=== PATIENT | female | born 1955 | race Caucasian/White ===

== ENCOUNTER 2016-07-27 16:22 | Emergency (ER) | payer SELFPAY ==
--- NOTE | 2016-07-27 17:01 | ER Document Report ---
ED Medical Screen (RME) - General Stated Complaint: RASH Time seen by provider: 16:57 Mode of Arrival: Ambulatory Information source: Patient Notes: 61-year-old female presents to ED for generalized rash since a week ago . She states she was working in the yard and developed a rash that is now spread over her body to include her "private area ." No acute distress noted difficulty swallowing no difficulty breathing talking in full since this. I have greeted and performed a rapid initial assessment of this patient. A comprehensive ED assessment and evaluation of the patient, analysis of test results and completion of medical decision making process will be conducted by an additional ED providers. TRAVEL OUTSIDE OF THE [place] IN LAST 30 DAYS: No - Related Data Allergies/Adverse Reactions: No Known Allergies Allergy (Unverified 02/10/16 09:01) Past Medical History Musculoskeltal Medical History: Reports Hx Arthritis, Reports Hx Muscle Spasm Physical Exam - Vital signs Vitals: Temp Pulse Resp BP Pulse Ox 98.0 F 80 16 127/57 H 100 07/27/16 16:28 07/27/16 16:28 07/27/16 16:28 07/27/16 16:28 07/27/16 16:28 Course - Vital Signs Vital signs: Temp Pulse Resp BP Pulse Ox 98.0 F 80 16 127/57 H 100 07/27/16 16:28 07/27/16 16:28 07/27/16 16:28 07/27/16 16:28 07/27/16 16:28
--- NOTE | 2016-07-27 20:03 | ER Document Report ---
ED Skin Rash/Insect Bite/Abscs - General Chief Complaint: Rash Stated Complaint: RASH Time seen by provider: 19:55 Mode of Arrival: Ambulatory Information source: Patient Notes: This is a 61-year-old female who presents to the emergency room with rash, redness and swelling. Patient states that she was out trimming trees last week. Approximately 3 days after, she started developing the rash. The rash first started on the inner aspect of the right forearm and arm. She states that she's had little lesions, inner groin area and on her trunk. TRAVEL OUTSIDE OF THE [place] IN LAST 30 DAYS: No - HPI Patient complains to provider of: Skin rash/lesion Onset: Last week Onset/Duration: Gradual Quality of pain: Dull Severity: Moderate Pain Level: 2 Skin Character: Lesion, Linear, Swelling Quality of rash: Itchy Identify cause: Yes - your debris Exacerbated by: Denies Relieved by: Denies Similar symptoms previously: No Recently seen / treated by doctor: No - Related Data Allergies/Adverse Reactions: No Known Allergies Allergy (Verified 07/27/16 17:02) Past Medical History - General Information source: Patient - Social History Smoking Status: Former Smoker Cigarette use (# per day): No Chew tobacco use (# tins/day): No Frequency of alcohol use: None Drug Abuse: None Lives with: Family Family History: Reviewed & Not Pertinent Patient has suicidal ideation: No Patient has homicidal ideation: No - Medical History Medical History: Negative Renal/ Medical History: Denies: Hx Peritoneal Dialysis Musculoskeltal Medical History: Reports Hx Arthritis, Reports Hx Muscle Spasm Surgical Hx: Negative Review of Systems - Review of Systems Constitutional: denies: Chills, Fever EENT: No symptoms reported Cardiovascular: No symptoms reported Respiratory: No symptoms reported Gastrointestinal: No symptoms reported Genitourinary: No symptoms reported Female Genitourinary: No symptoms reported Musculoskeletal: See HPI Skin: See HPI Hematologic/Lymphatic: No symptoms reported Neurological/Psychological: No symptoms reported Physical Exam - Vital signs Vitals: Temp Pulse Resp BP Pulse Ox 98.0 F 80 16 127/57 H 100 07/27/16 16:28 07/27/16 16:28 07/27/16 16:28 07/27/16 16:28 07/27/16 16:28 Notes: Physical exam: GENERAL: 61-year-old female, alert and oriented 3, no acute distress HEAD: Atraumatic, normocephalic. EYES: Pupils equal round and reactive to light, extraocular movements intact, sclera anicteric, conjunctiva are normal. ENT: Moist mucous membranes. NECK: Normal range of motion, supple LUNGS: Breath sounds clear to auscultation bilaterally and equal. No wheezes rales or rhonchi. HEART: Regular rate and rhythm without murmurs, rubs or gallops. EXTREMITIES: She has an erythematous rash on the inner aspect of the right forearm. There is aspects of the rash that are linear and weeping. She does have other lesions on the trunk. Normal range of motion, no pitting or edema. No clubbing or cyanosis. There is erythema. NEUROLOGICAL: Cranial nerves II through XII grossly intact. Normal speech, normal gait. PSYCH: Normal mood, normal affect. SKIN: As mentioned above under extremities. Course - Re-evaluation Re-evalutation: 07/27/16 20:13 Note: The patient has a fair amount of erythema along with linear lesions on the right upper extremity. I don't think this superimposed infection, but she has poor follow-up (i.e. no physician) and I'm putting her on a steroid for the toxodendron dermatitis. Therefore, I will cover her with some Keflex as well. She'll get some Percocet for pain. She will continue calamine and/or Benadryl. I've advised her to use oatmeal baths as well. I will give her the number for the [facility]. - Vital Signs Vital signs: Temp Pulse Resp BP Pulse Ox 98.0 F 80 16 127/57 H 100 07/27/16 16:28 07/27/16 16:28 07/27/16 16:28 07/27/16 16:28 07/27/16 16:28 Discharge - Discharge Clinical Impression: Toxicodendron dermatitis Condition: Stable Disposition: HOME, SELF-CARE Instructions: Duy Lisa ([facility]) Additional Instructions: Recommendations: The prednisone taper is as follows: Take 6 tablets (60 mg total) for 3 days. Then take 5 tablets (50 mg total) for 3 days. Then take 4 tablets (40 mg total) for 3 days. Then take 3 tablets (30 mg total) for 3 days. Then take 2 tablets (20 mg total) for 2 days. Then take one tablet (10 mg total) for one day. Then stop As far as the antibiotic, take Keflex as prescribed. Take Percocet for pain: See the narcotic instruction sheet. Do not take ibuprofen while on the prednisone (the 2 earlier take your stomach). Return to the emergency room for worsening pain, worsening redness, fever ( temperature greater than 100.4) or concerns are getting worse. You can continue the calamine lotion, and/or Benadryl. Oatmeal baths will also help. Follow-up with a primary care doctor: I left the number for the [facility] which is a free clinic affiliated with the [facility]. The pain medicine you're taking prescribed as a narcotic. There are several important things you should know about this medicine: 1. This medicine contains Tylenol: It is important that you do not take Tylenol (or acetaminophen) while on this medicine. Tylenol is metabolized by the liver and taking too much Tylenol (acetaminophen) can lay to liver damage and even liver failure. 2. Taking narcotics for too long can lead to physical and mental dependence. Take this medicine only if really needed and in the lowest quantity to achieve pain relief. 3. Do not drink alcohol while on this medicine. Alcohol interacts with narcotics and the combination can be dangerous. 4. Do not drive or operate machinery while on this medicine. 5. Narcotics do cause constipation, so drink plenty of fluids and daily stool softeners. Prescriptions: Cephalexin Monohydrate [Keflex 500 mg Capsule] 500 mg PO QID #20 capsule Oxycodone HCl/Acetaminophen [Percocet 5-325 mg Tablet] 1 - 2 tab PO ASDIR PRN # 25 tablet PRN Reason: Prednisone 10 mg PO DAILY #21 tablet Referrals: [facility] [Provider Group] - Follow up as needed
[2016-07-27 20:24] VITALS: BP 127/60
== END 2016-07-27 20:23 | disposition home or self-care (01) ==
LOC: ER 16:22
DX: L23.7 Allergic contact dermatitis due to plants, except food (principal); Z87.891 Personal history of nicotine dependence
CPT/HCPCS: 99282

== ENCOUNTER → 2018-09-19 | Outpatient (CLI) | payer OTHER ==
[2018-09-19 15:45] LABS: ABSOLUTE LYMPHOCYTES (AUTO) 2.1 10^3/uL (0.5-4.7); ABSOLUTE MONOCYTES (AUTO) 0.3 10^3/uL (0.1-1.4); ABSOLUTE NEUT (AUTO) 2.1 10^3/uL (1.7-8.2); BASOPHILS % (AUTO) 0.5 % (0-2); EOSINOPHILS % (AUTO) 1.1 % (0-6); HEMATOCRIT 35.3 % (36.0-47.0); HEMOGLOBIN 11.8 g/dL (12.0-15.5); LYMPHOCYTES % (AUTO) 45.4 % (13-45); MEAN CORPUSCULAR HEMOGLOBIN 29.8 pg (27.0-33.4); MEAN CORPUSCULAR HGB CONC 33.5 g/dL (32.0-36.0); MEAN CORPUSCULAR VOLUME 89 fl (80-97); MONOCYTES % (AUTO) 7.2 % (3-13); PLATELET COUNT 245 10^3/uL (150-450); RED BLOOD COUNT 3.97 10^6/uL (3.72-5.28); RED CELL DISTRIBUTION WIDTH 14.6 % (11.5-14.0); SEGMENTED NEUTROPHILS % (AUTO) 45.8 % (42-78); TOTAL CELLS COUNTED % (AUTO) 100 %; WHITE BLOOD COUNT 4.5 10^3/uL (4.0-10.5)
[2018-09-19 15:59] LABS: ALANINE AMINOTRANSFERASE 26 U/L (9-52); ALBUMIN 4.7 g/dL (3.5-5.0); ALKALINE PHOSPHATASE 35 U/L (38-126); ANION GAP 12 (5-19); ASPARTATE AMINO TRANSFERASE 28 U/L (14-36); BILIRUBIN,DIRECT 0.2 mg/dL (0.0-0.4); BILIRUBIN,TOTAL 0.3 mg/dL (0.2-1.3); BLOOD UREA NITROGEN 13 mg/dL (7-20); CALCIUM 10.3 mg/dL (8.4-10.2); CARBON DIOXIDE 28 mmol/L (22-30); CHLORIDE 100 mmol/L (98-107); GLUCOSE 95 mg/dL (75-110); LIPASE 246.7 U/L (23-300); POTASSIUM 4.5 mmol/L (3.6-5.0); SODIUM 139.8 mmol/L (137-145); TOTAL PROTEIN 7.9 g/dL (6.3-8.2)
== END ==
LOC: OD 14:53
PROVIDERS: ATTEND Physician Assistant
DX: R10.13 Epigastric pain (principal)
CPT/HCPCS: 36415; 80053; 83690; 84443; 85025

== ENCOUNTER → 2018-10-02 | Outpatient (CLI) | payer OTHER ==
--- NOTE | 2018-10-02 10:19 | RADIOLOGY REPORT (SQ) ---
EXAM DESCRIPTION: U/S ABDOMEN COMPLETE W/DOPPLER COMPLETED DATE/TIME: 10/02/2018 8:55 am REASON FOR STUDY: NAUSEA (R11.0), EPIGASTRIC PAIN (R10.13), DIARRHEA (R19.7) R11.0 NAUSEA R10.13 E PIGASTRIC PAIN R19.7 DIARRHEA, UNSPECIFIED COMPARISON: None. TECHNIQUE: Dynamic and static grayscale images acquired of the abdomen and recorded on PACS. Additio nal selected color Doppler and spectral images recorded. Note: Study does not meet criteria for complete doppler/duplex scan LIMITATIONS: None. FINDINGS: PANCREAS: No masses. Visualized pancreatic duct normal caliber. LIVER: No masses. Echotexture normal. LIVER VASCULATURE: Normal directional flow of the main portal vein and hepatic veins. GALLBLADDER: No stones. Normal wall thickness. No pericholecystic fluid. ULTRASOUND-DETECTED ORTIZ'S SIGN: Negative. INTRAHEPATIC DUCTS AND COMMON DUCT: CBD and intrahepatic ducts normal caliber. No filling defects. INFERIOR VENA CAVA: Normal flow. AORTA: No aneurysm. RIGHT KIDNEY: Normal size. Normal echogenicity. No solid or suspicious masses. No hydronephros is. No calcifications. LEFT KIDNEY: Normal size. Normal echogenicity. No solid or suspicious masses. No hydronephrosi s. No calcifications. SPLEEN: Normal size. No solid masses. PERITONEAL AND PLEURAL SPACES: No ascites or effusions. OTHER: No other significant finding. IMPRESSION: NORMAL ABDOMINAL ULTRASOUND. TECHNICAL DOCUMENTATION: JOB ID: [id number] [employer] All Rights Reserved Reading location - IP/workstation name: [email or web address]
== END ==
LOC: RAD 07:54
PROVIDERS: ATTEND Physician Assistant
DX: R11.0 Nausea (principal); R10.13 Epigastric pain; R19.7 Diarrhea, unspecified
CPT/HCPCS: 76700; 93976

== ENCOUNTER → 2018-10-08 | Outpatient (CLI) | payer OTHER ==
--- NOTE | 2018-10-08 20:06 | RADIOLOGY REPORT (SQ) ---
EXAM DESCRIPTION: RadLex: CT HEAD WITHOUT THEN WITH IV CONTRAST CLINICAL HISTORY: 63 years Female; R51 HEADACHA R53.9 UNSPECIFIED VISUAL DISTURBANCE TECHNIQUE: CT of the brain with and without contrast using intravenous contrast.. All CT scans at this facility use dose modulation, iterative reconstruction, and/or weight based dosing when appropriate to reduce radiation dose to as low as reasonably achievable. COMPARISON: None. FINDINGS: Wood matter, white matter, ventricles, and cisterns are within normal limits. No acute hemorrhage or mass effect. No enhancing intracranial masses. Visualized portions of paranasal sinuses and mastoids are clear. No retro-orbital mass or edema. Visualized portions of the calvarium are within normal limits. IMPRESSION: 1. Normal CT of the brain with and without contrast.
== END ==
LOC: RAD 17:38
PROVIDERS: ATTEND Physician Assistant
DX: H57.02 Anisocoria (principal); R51 Headache; H53.9 Unspecified visual disturbance
CPT/HCPCS: 70470; 82565

== ENCOUNTER → 2018-12-04 | Outpatient (CLI) | payer OTHER ==
--- NOTE | 2018-12-04 15:40 | WOMENS IMAGING REPORT ---
EXAM DESCRIPTION: BILAT DIAGNOSTIC MAMMO W/CAD; U/S BREAST UNILAT LIMITED COMPLETED DATE/TIME: 12/04/2018 8:31 am; 12/04/2018 9:04 am REASON FOR STUDY: N63.20 UNSPECIFIED LUMP IN THE LEFT BREAST, UNSPECIFIED QUADRANT; LT BREAST LUMP N 63.20 UNSPECIFIED LUMP IN THE LEFT BREAST, UNSPECIFIED QUAD COMPARISON: Baseline study EXAM PARAMETERS: Standard craniocaudal and mediolateral oblique views of each breast recorded using digital acquisition. Additional left breast 90 mediolateral view, left breast cone compression in the CC and MLO orientat ions, and left breast ultrasound Read with the assistance of CAD: .[employer] Version 9.2 LIMITATIONS: None. FINDINGS: RIGHT BREAST MASSES: No suspicious masses. CALCIFICATIONS: No new or suspicious calcifications. ARCHITECTURAL DISTORTION: None. DEVELOPING DENSITY: None. ASYMMETRY: None noted. OTHER: No other significant findings. LEFT BREAST MASSES: In the left breast 12 to 1 o'clock position, an irregularly-shaped low-density mammographic n odule is present about 8 mm in size, 6 cm from the nipple. CALCIFICATIONS: No new or suspicious calcifications. ARCHITECTURAL DISTORTION: None. DEVELOPING DENSITY: None. ASYMMETRY: None noted. OTHER: No other significant finding. Left breast ultrasound: Ultrasound of the left breast at the 12 to 1 o'clock position demonstrates an 8 mm hypoechoic nodule with ill-defined borders. This is not clearly a simple cyst. This correlates with the nodule seen a t mammography. Ultrasound-guided core biopsy, post biopsy clip placement with follow-up two-view tommy mogram recommended. Patient presented with a palpable abnormality in the lower inner quadrant left breast. Today's mammo grams and ultrasound in this area are unremarkable. IMPRESSION: No mammographic evidence for malignancy right breast. Ultrasound and mammographic evaluation of the left breast lower inner quadrant palpable abnormality w as negative. Mammographic and sonographic nodule left breast 12 to 1 o'clock position about 8 mm in size, cm from the nipple. This is not clearly a simple cyst. Ultrasound-guided core biopsy with post biopsy clip placement and follow-up two-view mammogram recommended (BI-RADS 4 Suspicious. Needing intervention b ut with a low suspicion for malignancy. Biopsy should be performed in the absence of clinical contra- indication. BREAST DENSITY: b. There are scattered areas of fibroglandular density. BIRAD: ASSESSMENT: Left breast BI-RADS 4, nodule 12 to 1 o'clock position RECOMMENDATION: RECOMMENDED FOLLOW UP: Left breast ultrasound-guided core biopsy with post biopsy cl ip placement and immediate follow-up two-view post biopsy mammogram SPECIFIC INTERVENTION/IMAGING/CONSULTATION RECOMMENDED:As above COMMUNICATION:Patient notified by letter COMMENT: The patient has been notified of the results by letter per [facility] requirements. Additional no tification policies are in place for contacting patient with suspicious or incomplete findings. Quality ID #225: The [employer] recommends an annual screening mammogram for women aged 40 years or over. This facility utilizes a reminder system to ensure that all patients receive reminder letters, and/or direct phone calls for appointments. This includes reminders for routine scr eening mammograms, diagnostic mammograms, or other Breast Imaging Interventions when appropriate. Th is patient will be placed in the appropriate reminder system. TECHNICAL DOCUMENTATION: FINDING NUMBER: (1) ASSESSMENT: (1) JOB ID: [id number] [employer]- All Rights Reserved Reading location - IP/workstation name: [email or web address]
== END ==
LOC: WI 07:55
PROVIDERS: ATTEND Physician Assistant
DX: N63.20 Unspecified lump in the left breast, unspecified quadrant (principal)
CPT/HCPCS: 76642; 77066

== ENCOUNTER → 2018-12-15 | Outpatient (CLI) | payer OTHER ==
--- NOTE | 2018-12-15 14:42 | WOMENS IMAGING REPORT ---
EXAM DESCRIPTION: U/S BREAST UNILAT LIMITED COMPLETED DATE/TIME: 12/15/2018 1:46 pm REASON FOR STUDY: N63.20 UNSPECIFIED LUMP IN THE LEFT BREAST, UNSPECIFIED QUADRANT N63.20 UNSPECIFI ED LUMP IN THE LEFT BREAST, UNSPECIFIED QUAD COMPARISON: 12/04/2018. TECHNIQUE: Real-time and static grayscale imaging performed of the superior left breast targeted to the area of clinical/mammographic concern. Sonography was performed by the technologist with myself in attendance. Selected color Doppler images recorded. LIMITATIONS: None. FINDINGS: MASS: No mass identified. Normal glandular tissue. OTHER: No other significant finding. IMPRESSION: No suspicious findings detected by ultrasound. BIRAD: Negative. RECOMMENDATION: RECOMMENDED FOLLOW-UP: The previously seen indistinct finding on ultrasound is not p resent on the current study and therefore biopsy was canceled. Based on the prior mammogram and ultra sound, would recommend a short-term interval follow-up to confirm that findings are stable and nonpro gressive. Therefore would recommend diagnostic mammogram of the left breast and left breast ultrasou nd in 3 months. COMMENT: The [employer] (ACR) has developed recommendations for screening MRI of the breasts in certain patient populations, to be used in conjunction with mammography. Breast MRI s urveillance may be appropriate for women with more than 20% lifetime risk of developing breast cancer as determined by genetic testing, significant family history of the disease, or history of mantle r adiation for Hodgkins Disease. ACR Practice Guidelines 2008. TECHNICAL DOCUMENTATION: JOB ID: [id number] [employer]- All Rights Reserved Reading location - IP/workstation name: [email or web address]
== END ==
LOC: WI 12:44 → EDSTATUS 13:51
PROVIDERS: ATTEND Physician Assistant
DX: N63.20 Unspecified lump in the left breast, unspecified quadrant (principal)
CPT/HCPCS: 76642

== ENCOUNTER 2019-01-30 07:56 | Emergency (ER) | payer OTHER ==
[2019-01-30] MEDS ORDERED: METOCLOPRAMIDE HCL ORAL SOLN 10 MG/10 ML UDCUP PO ONE (08:32)
[2019-01-30] MEDS ORDERED: LIDOCAINE 2% VISCOUS SOLN 20 ML UDCUP PO ONE (08:32)
[2019-01-30] MEDS ORDERED: MAG HYDROX/AL HYDROX/SIMETH SUSP 30 ML UDCUP PO ONE (08:32)
[2019-01-30 08:35] LABS: ABSOLUTE EOSINOPHILS # (AUTO) 0.1 10^3/uL (0.0-0.6); ABSOLUTE LYMPHOCYTES (AUTO) 2.5 10^3/uL (0.5-4.7); ABSOLUTE MONOCYTES (AUTO) 0.4 10^3/uL (0.1-1.4); ABSOLUTE NEUT (AUTO) 2.2 10^3/uL (1.7-8.2); BASOPHILS % (AUTO) 0.6 % (0-2); EOSINOPHILS % (AUTO) 1.1 % (0-6); HEMATOCRIT 38.7 % (36.0-47.0); HEMOGLOBIN 13.3 g/dL (12.0-15.5); MEAN CORPUSCULAR HGB CONC 34.3 g/dL (32.0-36.0); MEAN CORPUSCULAR VOLUME 90 fl (80-97); MONOCYTES % (AUTO) 7.8 % (3-13); PLATELET COUNT 199 10^3/uL (150-450); RED BLOOD COUNT 4.28 10^6/uL (3.72-5.28); SEGMENTED NEUTROPHILS % (AUTO) 42.5 % (42-78); TOTAL CELLS COUNTED % (AUTO) 100 %; WHITE BLOOD COUNT 5.3 10^3/uL (4.0-10.5)
[2019-01-30] MEDS ORDERED: FAMOTIDINE INJ/PF 20 MG/2 ML SDV IV ONE (08:37)
--- NOTE | 2019-01-30 08:38 | ER Document Report ---
ED General - General Chief Complaint: Chest Pain Stated Complaint: CHEST PAIN Time Seen by Provider: 01/30/19 08:17 Primary Care Provider: ILAN JOHNSON PA [Primary Care Provider] - Follow up as needed Notes: Patient is a 63-year-old female presents to the emergency department with a chief complaint of abdominal pressure/chest pressure/chest palpitations. Patient states she woke up around 730 this morning and just finished a cup of decaf coffee when she developed a severe upper abdominal pressure and chest pal pitations. Patient states she has had chest palpitations over the past few months and has seen cardiology. Patient reports cardiology did want to do a stress test and an echo but she does not have insurance so she is waiting on a juan packet. Patient does report nausea. Patient also reports a combination of constipation and diarrhea. Patient reports acid reflux and belching. Patient reports the chest pressure does radiate in between her shoulder blades. Patient also states that eating seems to make the chest palpitations and chest pressure worse. Patient reports that months ago they did check her gallbladder but states they did not find any abnormalities. Patient denies vomiting. Patient also reports losing about 20 pounds over the past 4 to 5 months. TRAVEL OUTSIDE OF THE [place] IN LAST 30 DAYS: No - Related Data Allergies/Adverse Reactions: No Known Allergies Allergy (Verified 01/30/19 07:57) Past Medical History - General Information source: Patient - Social History Smoking Status: Current Every Day Smoker Cigarette use (# per day): Yes - 2-3 cigs/daily Smoking Education Provided: Yes Frequency of alcohol use: None Drug Abuse: Marijuana Lives with: Family Family History: Reviewed & Not Pertinent - Past Medical History Cardiac Medical History: Reports: None Pulmonary Medical History: Reports: None EENT Medical History: Reports: None Neurological Medical History: Reports: None Endocrine Medical History: Reports: None Renal/ Medical History: Reports: None. Denies: Hx Peritoneal Dialysis Malignancy Medical History: Reports: None GI Medical History: Reports: None Musculoskeletal Medical History: Reports Hx Arthritis, Reports Hx Muscle Spasm Skin Medical History: Reports None Psychiatric Medical History: Reports: None Traumatic Medical History: Reports: None Infectious Medical History: Reports: None Past Surgical History: Reports: Hx Tubal Ligation Review of Systems - Review of Systems Constitutional: See HPI EENT: No symptoms reported Cardiovascular: See HPI Respiratory: See HPI Gastrointestinal: See HPI Genitourinary: No symptoms reported Female Genitourinary: No symptoms reported Musculoskeletal: No symptoms reported Skin: No symptoms reported Hematologic/Lymphatic: No symptoms reported Neurological/Psychological: No symptoms reported Physical Exam - Vital signs Vitals: Temp Pulse Resp BP Pulse Ox 98.1 F 98 14 128/61 H 100 01/30/19 08:08 01/30/19 08:08 01/30/19 08:08 01/30/19 08:08 01/30/19 08:08 Interpretation: Normal - Notes Notes: GENERAL: Well-appearing, well-nourished and in no acute distress. HEAD: Atraumatic, normocephalic. EYES: Pupils equal round and reactive to light, extraocular movements intact, sclera anicteric, conjunctiva are normal. ENT: Nares patent, oropharynx clear without exudates. Moist mucous membranes. NECK: Normal range of motion, supple without lymphadenopathy or JVD. LUNGS: Breath sounds clear to auscultation bilaterally and equal. No wheezes rales or rhonchi. HEART: Regular rate and rhythm without murmurs, rubs or gallops. ABDOMEN: Soft, reproducible worsening chest pressure with palpation, hyperactive bowel sounds. + RUQ and epigastric tenderness. No masses appreciated. BACK: No cervical, thoracic, lumbar midline tenderness. No saddle anesthesia, normal distal neurovascular exam. GENITOURINARY: Deferred. EXTREMITIES: Normal range of motion, no pitting or edema. No clubbing or cyanosis. NEUROLOGICAL: Cranial nerves II through XII grossly intact. Normal speech, normal gait. PSYCH: Normal mood, normal affect. SKIN: Warm, Dry, normal turgor, no rashes or lesions noted. Course - Re-evaluation Re-evalutation: 01/30/19 08:37 We will obtain a cardiac work-up, ultrasound of the right upper quadrant as patient did have significant tenderness in the right upper quadrant and epigastric area. Will give a GI cocktail as the patient reports extreme belching and some acid reflux. Patient denies home medications and states she does not take anything for her acid reflux. 01/30/19 10:00 Patient reports that the GI cocktail did help with her belching and abdominal pain. Patient reports she is not having any chest pressure but still has the palpitations. Did inform the patient's of her negative troponin and unremarkable lab work. A urinalysis has been sent off for testing. Right upper quadrant ultrasound was negative for any acute abnormality to include issues with the gallbladder. Patient is sitting upright on the stretcher and in no acute distress. Patient also reports having a right lateral neck pain. Patient reports he feels a tightness. Patient states this is not new and has been ongoing for months. Patient reports this feels like muscle type discomfort. Patient states she has not taken any medication for this. 01/30/19 11:06 Upon reevaluation patient is resting comfortably in no acute distress. Patient reports her chest pressure and abdominal tightness has improved since receiving the GI cocktail and have completely resolved. Patient reports her palpitations have also significantly subsided. Patient reports she feels like she was having some anxiety when she was having the pressure symptoms earlier. Patient reports having anxiety attacks in the past with her severe acid reflux. Patient reports she does take Prilosec but has not taken in a few days. Patient has been asymptomatic since receiving the GI cocktail. My suspicion for cardiac involvement is low as the patient did have worsening chest pressure with palp ation across her whole chest and since her symptoms did improve after receiving the GI cocktail and is the fact the patient has had these symptoms for 4 months. Patient will have the occasional PVC on the monitor but these are not frequent. Patient heart score is a 2. - Vital Signs Vital signs: Temp Pulse Resp BP Pulse Ox 98.1 F 98 14 128/61 H 100 01/30/19 08:08 01/30/19 08:08 01/30/19 08:08 01/30/19 08:08 01/30/19 08:08 - Laboratory Result Diagrams: 01/30/19 08:20 01/30/19 08:20 Laboratory results interpreted by me: 01/30/19 01/30/19 01/30/19 08:20 08:20 08:23 Lymph % (Auto) 48.0 H Sodium 136.7 L Glucose 113 H Alkaline Phosphatase 33 L Urine Ketones 20 H - Diagnostic Test Radiology reviewed: Reports reviewed Radiology results interpreted by me: 01/30/19 09:56 Chest X-Ray 01/30/19 08:26 IMPRESSION: Biapical pleuroparenchymal scarring. No acute abnormality of the lungs. Abdomen Ultrasound 01/30/19 08:32 IMPRESSION: No sonographic abnormality of the right upper quadrant. - EKG Interpretation by Me Additional EKG results interpreted by me: 01/30/19 11:14 Patient's EKG shows a sinus tachycardia with a rate of 111, QT 344 and QTC is 46 8. Patient has a left axis deviation. There is three ventricular premature complexes noted on the EKG. There is no ST segment changes in consecutive leads. There is no additional EKG for comparison. Discharge - Discharge Clinical Impression: Palpitations, Neck pain Acid reflux Qualifiers: Esophagitis presence: esophagitis presence not specified Qualified Code(s): K21.9 - Gastro-esophageal reflux disease without esophagitis Gastritis Qualifiers: Gastritis type: unspecified gastritis Chronicity: unspecified Gastritis bleeding: without bleeding Qualified Code(s): K29.70 - Gastritis, unspecified, without bleeding Condition: Stable Disposition: HOME, SELF-CARE Additional Instructions: Today you were seen in the emergency department for chest palpitations, chest pressure and abdominal pressure. We did obtain an ultrasound of the abdomen whi ch did not show any acute abnormality with the gallbladder. Your blood work was also reassuring and you did not have a urinary tract infection. After receiving the GI cocktail which includes Maalox, lidocaine and Reglan that you reported that your symptoms have improved and you are no longer having any chest pressure or abdominal pressure. He reports the palpitations have significantly subsided since her symptoms have improved. Please return to the emergency department if you develop severe chest pain, shoulder pain, pain that radiates to the jaw or arms, cough, shortness of breath, fever or any other concerning signs or symptoms. You are also seen for a neck pain. The symptoms are consistent with a muscle strain or musculoskeletal in nature. Please use warm packs to the area. Please use Tylenol as needed for pain. I would try to avoid NSAIDs such as ibuprofen, Aleve or any other NSAIDs as this can upset your stomach and make your acid reflux worse. Please follow-up with your technology specialist. Return if you develop any new or worsening symptoms. Chest Pain of Unclear Cause The exact cause of your chest pain isn't clear. Fortunately, there is no evidence of a dangerous medical condition. Further testing may be required to find the source of the pain. Most often, we find that this pain is coming from the chest wall -- the muscles or rib joints in the chest. But chest pain can come from the lung and lung lining, the esophagus, the heart valves or heart lining, and even the stomach or gallbladder. Rest. Eat lightly until the pain is gone. We may prescribe medicine for pain and inflammation. You should call the physician immediately if the pain radiates to the shoulder, jaw or arms; if you start to run a fever or develop a cough; or if you develop shortness of breath, or other new or alarming symptoms. Chest Pain of Unclear Cause The exact cause of your chest pain isn't clear. Fortunately, there is no evidence of a dangerous medical condition. Further testing may be required to find the source of the pain. Most often, we find that this pain is coming from the chest wall -- the muscles or rib joints in the chest. But chest pain can come from the lung and lung lining, the esophagus, the heart valves or heart lining, and even the stomach or gallbladder. Rest. Eat lightly until the pain is gone. We may prescribe medicine for pain and inflammation. You should call the physician immediately if the pain radiates to the should er, jaw or arms; if you start to run a fever or develop a cough; or if you develop shortness of breath, or other new or alarming symptoms. Prescriptions: Famotidine [Pepcid 20 mg Tablet] 20 mg PO DAILY #30 tablet Forms: Smoking Cessation Education Referrals: ILAN JOHNSON PA [Primary Care Provider] - Follow up as needed
--- NOTE | 2019-01-30 08:48 | EKG REPORT ---
SEVERITY:- ABNORMAL ECG - SINUS TACHYCARDIA MULTIFORM VENTRICULAR PREMATURE COMPLEXES LEFT AXIS DEVIATION LOW VOLTAGE IN FRONTAL LEADS : Confirmed by: Delia Bowman MD 30-Jan-2019 08:47:22
[2019-01-30 08:53] LABS: ALBUMIN 4.9 g/dL (3.5-5.0); ALKALINE PHOSPHATASE 33 U/L (38-126); ANION GAP 14 (5-19); ASPARTATE AMINO TRANSFERASE 34 U/L (14-36); BILIRUBIN,DIRECT 0.1 mg/dL (0.0-0.4); BILIRUBIN,TOTAL 0.5 mg/dL (0.2-1.3); BLOOD UREA NITROGEN 15 mg/dL (7-20); CALCIUM 10.2 mg/dL (8.4-10.2); CARBON DIOXIDE 22 mmol/L (22-30); CHLORIDE 101 mmol/L (98-107); GLUCOSE 113 mg/dL (75-110); POTASSIUM 3.8 mmol/L (3.6-5.0); TOTAL PROTEIN 7.8 g/dL (6.3-8.2)
--- NOTE | 2019-01-30 09:10 | RADIOLOGY REPORT (SQ) ---
EXAM DESCRIPTION: CHEST SINGLE VIEW COMPLETED DATE/TIME: 01/30/2019 9:03 am REASON FOR STUDY: chest pressure COMPARISON: None. EXAM PARAMETERS: NUMBER OF VIEWS: One view. TECHNIQUE: Single frontal radiographic view of the chest acquired. RADIATION DOSE: NA LIMITATIONS: None. FINDINGS: LUNGS AND PLEURA: No opacities, masses or pneumothorax. Biapical pleuroparenchymal scarri ng. No pleural effusion. MEDIASTINUM AND HILAR STRUCTURES: No masses. Contour normal. HEART AND VASCULAR STRUCTURES: Heart normal in size. Normal vasculature. BONES: No acute findings. HARDWARE: None in the chest. OTHER: No other significant finding. IMPRESSION: Biapical pleuroparenchymal scarring. No acute abnormality of the lungs. TECHNICAL DOCUMENTATION: JOB ID: [id number] [employer]- All Rights Reserved Reading location - IP/workstation name: [email or web address]
--- NOTE | 2019-01-30 09:47 | RADIOLOGY REPORT (SQ) ---
EXAM DESCRIPTION: U/S ABDOMEN LIMITED W/O DOP COMPLETED DATE/TIME: 01/30/2019 9:33 am REASON FOR STUDY: RUQ tenderness, epigastric discomfort COMPARISON: Ultrasound of the abdomen from 01/30/2019. TECHNIQUE: Dynamic and static grayscale images acquired of the abdomen and recorded on PACS. Additio nal selected color Doppler and spectral images recorded. LIMITATIONS: None. FINDINGS: PANCREAS: The visualized portions of the pancreas appear normal. LIVER: Normal echotexture. LIVER VASCULATURE: Normal directional flow of the main portal vein and hepatic veins. GALLBLADDER: The gallbladder wall measures 2 mm in thickness. There is no cholelithiasis, sludge or pericholecystic fluid. ULTRASOUND-DETECTED ORTIZ'S SIGN: Negative. INTRAHEPATIC DUCTS AND COMMON DUCT: The common bile duct measures 2 mm in diameter. There is no dila tation of the intrahepatic bile ducts. INFERIOR VENA CAVA: Normal flow. AORTA: No aneurysm. RIGHT KIDNEY: Normal size. No hydronephrosis. PERITONEAL AND RIGHT PLEURAL SPACE: No ascites or effusions. OTHER: No other significant findings. IMPRESSION: No sonographic abnormality of the right upper quadrant. TECHNICAL DOCUMENTATION: JOB ID: [id number] [employer]- All Rights Reserved Reading location - IP/workstation name: [email or web address]
[2019-01-30 10:20] LABS: APPEARANCE,URINE CLEAR; BILIRUBIN,URINE NEGATIVE (NEGATIVE); COLOR,URINE YELLOW; GLUCOSE, URINE NEGATIVE (NEGATIVE); KETONES,URINE 20 mg/dL (NEGATIVE); LEUKOCYTE ESTERASE,URINE NEGATIVE (NEGATIVE); NITRITE,URINE NEGATIVE (NEGATIVE); PROTEIN,URINE NEGATIVE (NEGATIVE); URINE SPECIFIC GRAVITY 1.012; UROBILINOGEN,URINE NEGATIVE mg/dL (<2.0)
[2019-01-30 10:24] LABS: ADD MANUAL MICROSCOPIC YES
[2019-01-30 10:32] LABS: BACTERIA,URINE 1+ /HPF; RBC,URINE 0-1 /HPF; WBC,URINE NONE SEEN /HPF
[2019-01-30 11:32] VITALS: BP 120/81
== END 2019-01-30 11:33 | disposition home or self-care (01) ==
LOC: ER 07:56
DX: K21.9 Gastro-esophageal reflux disease without esophagitis (principal); K29.70 Gastritis, unspecified, without bleeding; R07.89 Other chest pain; R00.2 Palpitations; I49.3 Ventricular premature depolarization; M54.2 Cervicalgia; R00.0 Tachycardia, unspecified; K59.00 Constipation, unspecified; R19.8 Other specified symptoms and signs involving the digestive system and abdomen; R11.0 Nausea; R19.7 Diarrhea, unspecified; R14.2 Eructation; R10.811 Right upper quadrant abdominal tenderness; R10.816 Epigastric abdominal tenderness; R63.4 Abnormal weight loss; F17.210 Nicotine dependence, cigarettes, uncomplicated; F12.10 Cannabis abuse, uncomplicated; J98.4 Other disorders of lung
CPT/HCPCS: 93005; 36415; 83690; 85025; 80053; 81001; 84484; 71045; 76705; 93010; J3490; S0028; 96374; 99285